=== PATIENT | female | born 1965 | race Hispanic/Latino ===

== ENCOUNTER → 2019-01-28 | Outpatient (CLI) | payer OTHER ==
[2019-01-28 12:08] LABS: CREATININE 0.7 mg/dL (0.5-1.5)
== END | disposition home or self-care (01) ==
LOC: LAB 11:05
PROVIDERS: ATTEND Internal Medicine Cardiovascular Disease
DX: R07.9 Chest pain, unspecified (principal); R06.00 Dyspnea, unspecified
CPT/HCPCS: 36415; 82565; 84520

== ENCOUNTER → 2019-01-30 | Outpatient (CLI) | payer OTHER ==
[~2019-01-30] MED LIST: IOHEXOL-350 50ML VIAL IV ONE
== END | disposition home or self-care (01) ==
LOC: RAH 08:37
PROVIDERS: ATTEND Internal Medicine Cardiovascular Disease
DX: I26.99 Other pulmonary embolism without acute cor pulmonale (principal); M79.661 Pain in right lower leg; M79.662 Pain in left lower leg; R07.9 Chest pain, unspecified
CPT/HCPCS: 71275; 93970; Q9967

== ENCOUNTER → 2019-07-30 | Outpatient (CLI) | payer OTHER | END | disposition home or self-care (01) | LOC: RAH 14:53 | PROVIDERS: ATTEND Internal Medicine | DX: Z12.31 Encounter for screening mammogram for malignant neoplasm of breast (principal) | CPT/HCPCS: 77067 ==

== ENCOUNTER 2020-07-02 06:13 | Day surgery (SDC) | payer OTHER ==
[2020-06-30 10:00] VITALS: BP 148/69
[2020-06-30 10:58] LABS: BASOPHILS % (AUTO) 0.5 % (0.0-5.0); EOSINOPHILS % (AUTO) 1.8 % (0.0-8.0); HEMATOCRIT 38.8 % (36-48); LYMPHOCYTES % (AUTO) 29.4 % (21.0-51.0); MEAN CORPUSCULAR HEMOGLOBIN 30.3 pg (27.0-33.0); MEAN CORPUSCULAR HGB CONC 32.5 g/dL (32.0-36.0); MEAN CORPUSCULAR VOLUME 93.3 fL (79-99); MONOCYTES % (AUTO) 4.5 % (3.0-13.0); NEUTROPHILS % (AUTO) 63.5 % (40.0-77.0); PLATELET COUNT (AUTO) 406 K/uL (130-400); RED BLOOD CELL COUNT(AUTO) 4.16 MIL/uL (4.00-5.50); RED CELL DISTRIBUTION WIDTH 12.1 % (11.0-15.5); WHITE BLOOD COUNT (AUTO) 7.7 K/uL (4.8-10.8)
[2020-06-30 11:07] LABS: APPEARANCE,URINE Cloudy (CLEAR); BILIRUBIN,URINE Negative (NEGATIVE); COLOR,URINE Yellow (YELLOW); GLUCOSE, URINE (UA) Negative (NEGATIVE); KETONES,URINE Trace mg/dL (NEGATIVE); LEUKOCYTE ESTERASE ,URINE Small (NEGATIVE); NITRATE,URINE Negative (NEGATIVE); OCCULT BLOOD,URINE Negative (NEGATIVE); PH,URINE 5.5 (5.0-8.0); PROTEIN,URINE Negative (NEGATIVE); UROBILINOGEN,URINE 0.2 mg/dL (0.2-1.0)
[2020-06-30 11:13] LABS: CREATININE 0.8 mg/dL (0.5-1.5); POTASSIUM 4.1 mmol/L (3.5-5.1)
[2020-06-30 12:00] LABS: PROTHROMBIN TIME 10.9 SEC (9.6-11.6)
[2020-06-30 12:01] LABS: PARTIAL THROMBOPLASTIN TIME 29.1 SEC (26.3-35.5)
[2020-06-30 12:01] LABS: BACTERIA,URINE Few /HPF (None Seen); RBC,URINE 0-1 /HPF (0-1)
[2020-06-30 12:02] LABS: MUCUS,URINE Few LPF (None Seen)
[2020-07-02] VITALS (10 sets, daily range): BP systolic 111–133; BP diastolic 60–81
[~2020-07-02] VITALS: Ht 156.5 cm; Wt 68.0 kg
[~2020-07-02 06:13] MED LIST changes: +ACET-2521 PO; +AEC81 PO; +ASCO500C18 PO; +BACL10TA PO; +BIOT5000 PO; +CALC-190 PO; +CHOL500051 PO; +DIPH25TA51 PO; +DULO60CA64 PO; +FAMO20TA8 PO; +GABA-529 PO; -IOHEXOL-350 50ML VIAL IV ONE; +MULT-1367 PO; +NITR0.4T50 SL; +PANT20TA18 PO; +PIND10TA2 PO; +SIMV-46 PO
[2020-07-02] MEDS ORDERED: SODIUM CHLORIDE 0.9% 1000ML 1,000 ML IV ONE (06:26)
[2020-07-02] MEDS ORDERED: NICARDIPINE HCL 25 MG/10 ML ML IV ONE (07:18)
[2020-07-02] MEDS ORDERED: HEPARIN SODIUM 1000UNIT/ML 10ML VIAL ONE (07:19)
[2020-07-02] MEDS ORDERED: NITROGLYCERIN 2 MG/VIAL VIAL IV ONE (07:19)
[2020-07-02] MEDS ORDERED: IOHEXOL-350 75 ML VIAL IV ONE (07:24)
[2020-07-02] MEDS ORDERED: IOHEXOL-350 50ML VIAL IV ONE (07:24)
[2020-07-02] MEDS ORDERED: IOHEXOL 350 MG/ML 100ML INFUS..BTL IV ONE (07:24)
[2020-07-02] MEDS ORDERED: LIDOCAINE HCL 2% 20ML ONE (07:27)
[2020-07-02] MEDS ORDERED: SODIUM BICARB 50MEQ 50ML VIAL 50 ML ONE (07:28)
[2020-07-02] MEDS ORDERED: MIDAZOLAM HCL 1 MG/ML 2ML VIAL ONE (07:57)
[2020-07-02] MEDS ORDERED: FENTANYL CITRATE PF 50 MCG/1 ML 2ML VIAL ONE (07:57)
[2020-07-02] MEDS ORDERED: LABETALOL HCL 5 MG/ML 20ML VIAL IV ONE (08:17)
[2020-07-02] MEDS ORDERED: FUROSEMIDE 10 MG/ML 2ML VIAL ONE (08:21)
[2020-07-02] MEDS ORDERED: SODIUM CHLORIDE 0.9% 1000ML 1,000 ML IV SCH (08:45)
== END 2020-07-02 13:50 | disposition home or self-care (01) ==
LOC: DAH 06:13
PROVIDERS: ATTEND Internal Medicine Cardiovascular Disease
DX: I20.9 Angina pectoris, unspecified (principal); I95.1 Orthostatic hypotension; I11.0 Hypertensive heart disease with heart failure; I50.32 Chronic diastolic (congestive) heart failure; E78.00 Pure hypercholesterolemia, unspecified; K21.9 Gastro-esophageal reflux disease without esophagitis; Z79.01 Long term (current) use of anticoagulants; Z79.82 Long term (current) use of aspirin; Z98.890 Other specified postprocedural states; Z90.710 Acquired absence of both cervix and uterus; Z90.49 Acquired absence of other specified parts of digestive tract; Z82.49 Family history of ischemic heart disease and other diseases of the circulatory system; Z79.899 Other long term (current) drug therapy
CPT/HCPCS: 36415; 71045; 80048; 81001; 85025; 85610; 85730; 93005; 93458; A4215; A4216; A4221; A4222; A4223 ×3; A4606; A4663; C1769; C1894; J1644 ×3; J1940; J2250; J3010; J3490 ×5; J7030; Q9965; Q9967 ×3; 99156; 99157

== ENCOUNTER → 2020-08-27 | Outpatient (CLI) | payer OTHER | END | disposition home or self-care (01) | LOC: RAH 14:35 | PROVIDERS: ATTEND Internal Medicine | DX: Z12.31 Encounter for screening mammogram for malignant neoplasm of breast (principal) | CPT/HCPCS: 77067 ==

== ENCOUNTER → 2021-10-04 | Outpatient (CLI) | payer OTHER | END | disposition home or self-care (01) | LOC: RAH 12:45 | PROVIDERS: ATTEND Internal Medicine | DX: M19.012 Primary osteoarthritis, left shoulder (principal); M75.121 Complete rotator cuff tear or rupture of right shoulder, not specified as traumatic; M75.122 Complete rotator cuff tear or rupture of left shoulder, not specified as traumatic; M85.60 Other cyst of bone, unspecified site; M25.712 Osteophyte, left shoulder | CPT/HCPCS: 73221 ==

== ENCOUNTER 2022-06-03 15:07 | Inpatient (IN) | payer OTHER ==
[~2022-06-03] VITALS: Ht 152.4 cm; Wt 64.5 kg
[2022-06-03 15:54] LABS: BASOPHILS % (AUTO) 0.2 % (0.0-5.0); HEMATOCRIT 45.3 % (36-48); MEAN CORPUSCULAR HEMOGLOBIN 30.2 pg (27.0-33.0); MEAN CORPUSCULAR HGB CONC 33.3 g/dL (32.0-36.0); MEAN CORPUSCULAR VOLUME 90.6 fL (79-99); MONOCYTES % (AUTO) 4.4 % (3.0-13.0); PLATELET COUNT (AUTO) 183 K/uL (130-400); RED CELL DISTRIBUTION WIDTH 13.1 % (11.0-15.5)
[2022-06-03 16:23] LABS: ALBUMIN 4.1 g/dL (3.5-5.0); CREATININE 1.3 mg/dL (0.5-1.5); POTASSIUM 3.3 mmol/L (3.5-5.1); TOTAL PROTEIN, SERUM 7.9 g/dL (6.0-8.3)
[2022-06-03 16:44] LABS: APPEARANCE,URINE CLEAR (CLEAR); BILIRUBIN,URINE NEGATIVE (NEGATIVE); COLOR,URINE YELLOW (YELLOW); GLUCOSE, URINE (UA) NEGATIVE (NEGATIVE); KETONES,URINE NEGATIVE (NEGATIVE); LEUKOCYTE ESTERASE ,URINE NEGATIVE Leu/uL (NEGATIVE); NITRATE,URINE NEGATIVE (NEGATIVE); OCCULT BLOOD,URINE SMALL (NEGATIVE); PH,URINE 5.5 (5.0-8.0); PROTEIN,URINE 50 mg/dL (NEGATIVE); UROBILINOGEN,URINE 0.2 mg/dL (0.2-1.0)
[2022-06-03 16:53] LABS: BACTERIA,URINE RARE /HPF (None Seen); MUCUS,URINE FEW LPF (None Seen); SQUAMOUS EPITHELIAL CELL,UR RARE /HPF (0-2)
[2022-06-03] MEDS ORDERED: 0.9%NACL 1000ML 1,000 ML IV ONE (18:00)
[2022-06-03] MEDS ORDERED: LACTULOSE 20 GM/30 ML UDCUP PO PRN (19:00)
[2022-06-03] MEDS ORDERED: DOCUSATE SODIUM 100 MG CAP PO PRN (19:00)
[2022-06-03] MEDS ORDERED: ONDANSETRON 4MG INJ IVP PRN (19:00)
[2022-06-03] MEDS ORDERED: HYDRALAZINE 20MG/ML VIAL IV PRN (19:00)
[2022-06-03] MEDS ORDERED: TEMAZEPAM 15 MG CAPSULE PO PRN (19:00)
[2022-06-03] MEDS ORDERED: POTASSIUM CHLORIDE 10MEQ SR TAB PO ONE (19:30)
[2022-06-03] MEDS: DOXYCYCLINE 100MG+NS 250ML IV SCH (20:26)
[2022-06-03] MEDS: LACTATED RINGERS 1000ML 1,000 ML IV SCH (20:26)
[2022-06-03] MEDS: FAMOTIDINE 20MG TAB PO SCH (20:29)
[2022-06-03 21:00] VITALS: BP_SYST 114; BP_SYST 125; BP_SYST 126; BP_DIAS 67; BP_DIAS 68
[2022-06-03 22:23] LABS: CRP QUANTITATIVE 2.2 mg/L (0.00-9.0)
[2022-06-04] VITALS (10 sets, daily range): BP systolic 90–122; BP diastolic 43–68
[2022-06-04] MEDS ORDERED: DOXY100T2 PO (01:43)
[2022-06-04] MEDS ORDERED: TRAZ-185 PO (01:47)
[2022-06-04] MEDS ORDERED: PREG50 PO (01:49)
[2022-06-04] MEDS ORDERED: ROSU20TA31 PO (01:50)
[2022-06-04] MEDS ORDERED: FEXO1TAB8 PO (01:51)
[2022-06-04] MEDS ORDERED: HYDR25TA PO (01:51)
[2022-06-04] MEDS ORDERED: PYRI100T10 PO (01:52)
[2022-06-04 05:28] LABS: HEMATOCRIT 36.2 % (36-48); LYMPHOCYTES % (AUTO) 26.2 % (21.0-51.0); MEAN CORPUSCULAR HEMOGLOBIN 29.9 pg (27.0-33.0); MEAN CORPUSCULAR VOLUME 88.1 fL (79-99); MONOCYTES % (AUTO) 6.7 % (3.0-13.0); NEUTROPHILS % (AUTO) 66.6 % (40.0-77.0); PLATELET COUNT (AUTO) 169 K/uL (130-400); RED BLOOD CELL COUNT(AUTO) 4.11 MIL/uL (4.00-5.50); RED CELL DISTRIBUTION WIDTH 13.1 % (11.0-15.5); WHITE BLOOD COUNT (AUTO) 2.1 K/uL (4.8-10.8)
[2022-06-04] MEDS: LACTATED RINGERS 1000ML 1,000 ML IV SCH (05:28)
[2022-06-04 05:57] LABS: CREATININE 0.8 mg/dL (0.5-1.5); MAGNESIUM 1.6 mg/dL (1.80-2.40); PHOSPHORUS 2.6 mg/dL (2.5-4.9); THYROID STIMULATING HORMONE 1.9 uIU/mL (0.36-3.74)
[2022-06-04 06:09] LABS: POTASSIUM 2.9 mmol/L (3.5-5.1)
[2022-06-04] MEDS: LACTATED RINGERS 1000ML IV SCH (06:30)
[2022-06-04] MEDS ORDERED: MAGNESIUM 2GM PREMIX 50ML 50 ML IV PRN (06:30)
[2022-06-04] MEDS ORDERED: LIDOCAINE HCL-MPF 1% 2ML VIAL IV PRN (06:30)
[2022-06-04] MEDS ORDERED: POTASSIUM CHLORIDE 10MEQ/100ML 100 ML IV PRN (06:30)
[2022-06-04] MEDS ORDERED: POTASSIUM CHLORIDE 10% ELIXIR 20 MEQ/15 ML UDCUP PO PRN (06:30)
[2022-06-04 06:36] LABS: BAND NEUTROPHILS % (MANUAL) 1 % (0-2); LYMPHOCYTES % (MANUAL) 19 % (22-44); MONOCYTES % (MANUAL) 1 % (2-9); REACTIVE LYMPHOCYTES 3 % (0-0); SEGMENTED NEUTROPHILS % 76 % (40-70)
[2022-06-04 06:37] LABS: MAN.DIFF COMMENT-IMPRESSION MANUAL DIFFERENTIAL
[2022-06-04 06:38] LABS: PLATELET MORPHOLOGY COMMENT ADEQUATE
[2022-06-04] MEDS: ZOSYN 3.375GM +NS 50ML IV SCH ×3 (06:55→20:04)
[2022-06-04] MEDS: KCL 20 MEQ ERTAB PO PRN ×4 (07:21→17:45)
[2022-06-04] MEDS: NS-20 MEQ KCL 1000ML 1,000 ML IV SCH (07:21)
[2022-06-04] MEDS ORDERED: 0.9% NACL 250ML 250 ML ONE (07:41)
[2022-06-04] MEDS: POLYETHYLENE GLYCOL 3350 17 GM POWD.PACK PO SCH (07:42)
[2022-06-04] MEDS: DOXYCYCLINE 100MG+NS 250ML IV SCH ×2 (07:42→20:04)
[2022-06-04] MEDS: ACETAMINOPHEN 325 MG TAB PO PRN ×3 (07:43→20:08)
[2022-06-04] MEDS ORDERED: TRAZODONE HCL 50 MG TAB PO PRN (11:30)
[2022-06-04] MEDS: ATORVASTATIN 40 MG TABLET PO SCH (17:44)
[2022-06-04] MEDS ORDERED: VITAMIN B COMPLEX 1 CAPSULE PO SCH (19:00)
[2022-06-04] MEDS ORDERED: MULTIVITAMIN TABLET PO SCH (19:00)
[2022-06-04 19:34] LABS: AMPHET/METH SCREEN,URINE NEGATIVE (NEGATIVE); BARBITURATE SCREEN, URINE NEGATIVE (NEGATIVE); BENZODIAZEPINES SCREEN,URINE NEGATIVE (NEGATIVE); CANNABINOID SCREEN,URINE NEGATIVE (NEGATIVE); COCAINE SCREEN,URINE NEGATIVE (NEGATIVE); OPIATE SCREEN,URINE NEGATIVE (NEGATIVE); PHENCYCLIDINE SCREEN,URINE NEGATIVE (NEGATIVE)
[2022-06-04] MEDS: FAMOTIDINE 20MG TAB PO SCH (20:05)
[2022-06-04] MEDS: PREGABALIN 25 MG CAP PO SCH (20:06)
[2022-06-05] VITALS (8 sets, daily range): BP systolic 91–127; BP diastolic 38–71
[2022-06-05] MEDS: NS-20 MEQ KCL 1000ML 1,000 ML IV SCH ×2 (02:30→22:30)
[2022-06-05] MEDS: LACTATED RINGERS 1000ML IV SCH (04:40)
[2022-06-05 04:47] LABS: HEMATOCRIT 37.3 % (36-48); LYMPHOCYTES % (AUTO) 35.7 % (21.0-51.0); MEAN CORPUSCULAR HEMOGLOBIN 29.9 pg (27.0-33.0); MEAN CORPUSCULAR VOLUME 90.5 fL (79-99); MONOCYTES % (AUTO) 5.4 % (3.0-13.0); NEUTROPHILS % (AUTO) 58.3 % (40.0-77.0); PLATELET COUNT (AUTO) 148 K/uL (130-400); RED BLOOD CELL COUNT(AUTO) 4.12 MIL/uL (4.00-5.50); RED CELL DISTRIBUTION WIDTH 13.5 % (11.0-15.5); WHITE BLOOD COUNT (AUTO) 1.7 K/uL (4.8-10.8)
[2022-06-05] MEDS: ZOSYN 3.375GM +NS 50ML IV SCH ×3 (05:03→22:30)
[2022-06-05 05:13] LABS: ALBUMIN 2.9 g/dL (3.5-5.0); CREATININE 0.8 mg/dL (0.5-1.5); POTASSIUM 4.1 mmol/L (3.5-5.1); THYROID STIMULATING HORMONE 1.03 uIU/mL (0.36-3.74)
[2022-06-05] MEDS: DOXYCYCLINE 100MG+NS 250ML IV SCH ×2 (08:59→22:30)
[2022-06-05] MEDS: POLYETHYLENE GLYCOL 3350 17 GM POWD.PACK PO SCH (08:59)
[2022-06-05] MEDS: PREGABALIN 25 MG CAP PO SCH ×2 (09:00→22:30)
[2022-06-05] MEDS: MULTIVITAMIN TABLET PO SCH (09:00)
[2022-06-05] MEDS: VITAMIN B COMPLEX 1 CAPSULE PO SCH (09:00)
[2022-06-05] MEDS ORDERED: 0.9% NACL 250ML 250 ML ONE (10:25)
[2022-06-05] MEDS: PYRIDOXINE HCL 50 MG TABLET PO SCH (10:28)
[2022-06-05] MEDS: ATORVASTATIN 40 MG TABLET PO SCH (16:26)
[2022-06-05 20:47] LABS: HEPATITIS A IGM ANTIBODY Non-Reactive (Nonreactive); HEPATITIS B CORE IGM ANTIBODY Non-Reactive (Negative); HEPATITIS B SURFACE ANTIGEN Non-Reactive (Nonreactive); HEPATITIS C ANTIBODY Non-Reactive (Nonreactive)
[2022-06-05] MEDS: FAMOTIDINE 20MG TAB PO SCH (22:30)
[2022-06-05] MEDS: ACETAMINOPHEN 325 MG TAB PO PRN (22:31)
[2022-06-05] MEDS ORDERED: FLUCONAZOLE 400 MG/NS 200 ML 200 ML IV SCH (23:00)
[2022-06-06] MEDS: FLUCONAZOLE 400 MG/NS 200 ML 200 ML IV SCH (03:14)
[2022-06-06] MEDS: ZOSYN 3.375GM +NS 50ML IV SCH ×3 (04:21→17:21)
[2022-06-06 04:43] VITALS: BP 93/45
[2022-06-06 05:37] LABS: HEMATOCRIT 33.6 % (36-48); MEAN CORPUSCULAR HEMOGLOBIN 30.3 pg (27.0-33.0); MEAN CORPUSCULAR HGB CONC 33.6 g/dL (32.0-36.0); MEAN CORPUSCULAR VOLUME 90.1 fL (79-99); PLATELET COUNT (AUTO) 131 K/uL (130-400); RED BLOOD CELL COUNT(AUTO) 3.73 MIL/uL (4.00-5.50); RED CELL DISTRIBUTION WIDTH 13.7 % (11.0-15.5); WHITE BLOOD COUNT (AUTO) 2.1 K/uL (4.8-10.8)
[2022-06-06 05:48] LABS: CREATININE 0.8 mg/dL (0.5-1.5); POTASSIUM 3.9 mmol/L (3.5-5.1)
[2022-06-06 07:44] LABS: BASOPHILS % (MANUAL) 2 % (0-2); LYMPHOCYTES % (MANUAL) 38 % (22-44); MONOCYTES % (MANUAL) 20 % (2-9); SEGMENTED NEUTROPHILS % 40 % (40-70)
[2022-06-06 07:45] LABS: MAN.DIFF COMMENT-IMPRESSION MANUAL DIFFERENTIAL
[2022-06-06 07:47] LABS: PLATELET MORPHOLOGY COMMENT ADEQUATE
[2022-06-06 08:00] VITALS: BP 119/70
[2022-06-06] MEDS ORDERED: 0.9% NACL 250ML 250 ML ONE (08:52)
[2022-06-06] MEDS: MULTIVITAMIN TABLET PO SCH (08:55)
[2022-06-06] MEDS: POLYETHYLENE GLYCOL 3350 17 GM POWD.PACK PO SCH (08:55)
[2022-06-06] MEDS: VITAMIN B COMPLEX 1 CAPSULE PO SCH (08:55)
[2022-06-06] MEDS: DOXYCYCLINE 100MG+NS 250ML IV SCH ×2 (08:55→20:07)
[2022-06-06] MEDS: PREGABALIN 25 MG CAP PO SCH ×2 (08:55→20:04)
[2022-06-06] MEDS ORDERED: FLUCONAZOLE 400 MG/NS 200 ML 200 ML IV SCH (09:00)
[2022-06-06] MEDS: PYRIDOXINE HCL 50 MG TABLET PO SCH (11:35)
[2022-06-06 11:55] VITALS: BP 102/57
[2022-06-06 16:00] VITALS: BP 106/54
[2022-06-06] MEDS: ATORVASTATIN 40 MG TABLET PO SCH (17:18)
[2022-06-06] MEDS: FAMOTIDINE 20MG TAB PO SCH (20:04)
[2022-06-06 20:28] VITALS: BP 118/65
[2022-06-07 00:12] VITALS: BP 99/52
[2022-06-07 03:29] VITALS: BP 102/70
[2022-06-07] MEDS: ZOSYN 3.375GM +NS 50ML IV SCH ×2 (03:58→12:50)
[2022-06-07] MEDS: FLUCONAZOLE 400 MG/NS 200 ML 200 ML IV SCH (03:58)
[2022-06-07 05:04] LABS: BASOPHILS % (AUTO) 0.4 % (0.0-5.0); HEMATOCRIT 34.3 % (36-48); LYMPHOCYTES % (AUTO) 56.5 % (21.0-51.0); MEAN CORPUSCULAR HEMOGLOBIN 29.7 pg (27.0-33.0); MEAN CORPUSCULAR HGB CONC 33.2 g/dL (32.0-36.0); MEAN CORPUSCULAR VOLUME 89.3 fL (79-99); MONOCYTES % (AUTO) 7.6 % (3.0-13.0); NEUTROPHILS % (AUTO) 35.1 % (40.0-77.0); PLATELET COUNT (AUTO) 157 K/uL (130-400); RED BLOOD CELL COUNT(AUTO) 3.84 MIL/uL (4.00-5.50); RED CELL DISTRIBUTION WIDTH 13.8 % (11.0-15.5); WHITE BLOOD COUNT (AUTO) 2.8 K/uL (4.8-10.8)
[2022-06-07 08:00] VITALS: BP 118/75
[2022-06-07] MEDS ORDERED: 0.9% NACL 250ML 250 ML ONE (08:27)
[2022-06-07] MEDS: DOXYCYCLINE 100MG+NS 250ML IV SCH (08:41)
[2022-06-07] MEDS: PYRIDOXINE HCL 50 MG TABLET PO SCH (08:41)
[2022-06-07] MEDS: POLYETHYLENE GLYCOL 3350 17 GM POWD.PACK PO SCH (08:41)
[2022-06-07] MEDS: VITAMIN B COMPLEX 1 CAPSULE PO SCH (08:42)
[2022-06-07] MEDS: MULTIVITAMIN TABLET PO SCH (08:42)
[2022-06-07] MEDS: PREGABALIN 25 MG CAP PO SCH (08:42)
[2022-06-07 11:48] VITALS: BP_SYST 117; BP_SYST 140; BP_DIAS 74; BP_DIAS 85
== END 2022-06-07 17:00 | disposition home or self-care (01) | DRG 682 ==
LOC: EDH 15:07 → OBSVTOIN 18:53 → EDHIP 18:53 → 3AH 20:48
PROVIDERS: ADMIT Internal Medicine Critical Care Medicine; ATTEND Internal Medicine Critical Care Medicine
DX: N17.9 Acute kidney failure, unspecified (principal); R65.11 Systemic inflammatory response syndrome (SIRS) of non-infectious origin with acute organ dysfunction; B20 Human immunodeficiency virus [HIV] disease; E86.0 Dehydration; R55 Syncope and collapse; Z20.822 Contact with and (suspected) exposure to COVID-19; H66.90 Otitis media, unspecified, unspecified ear; M54.50 Low back pain, unspecified; G89.29 Other chronic pain; E87.6 Hypokalemia; M79.7 Fibromyalgia; E78.5 Hyperlipidemia, unspecified; F39 Unspecified mood [affective] disorder; K21.9 Gastro-esophageal reflux disease without esophagitis; I10 Essential (primary) hypertension; Z90.710 Acquired absence of both cervix and uterus; R50.81 Fever presenting with conditions classified elsewhere; D72.0 Genetic anomalies of leukocytes
CPT/HCPCS: 36415; 70450; 71045; 80048; 80053; 80061; 80074; 80305; 81001; 82330; 82550; 83036; 83605; 83735; 83874; 84100; 84145; 84443; 84484; 85025; 85027; 85651; 86140; 86360; 86480; 86701; 87040; 87389; 87390; 87536; 87635; 87804; 93005; 93306; 93356; 93880; C9803; G0378; J1450; J2405; J2543; J3475; J3480; J3490; J7030; J7050; J7120

== ENCOUNTER → 2024-06-06 | Outpatient (CLI) | payer OTHER ==
[~2024-06-06] MED LIST changes: -ACET-2521 PO; -AEC81 PO; -ASCO500C18 PO; -BACL10TA PO; -BIOT5000 PO; -CALC-190 PO; -CHOL500051 PO; -DIPH25TA51 PO; +DOXY100T2 PO; -DULO60CA64 PO; -FAMO20TA8 PO; +FEXO1TAB8 PO; -GABA-529 PO; +HYDR25TA PO; -MULT-1367 PO; -NITR0.4T50 SL; -PANT20TA18 PO; -PIND10TA2 PO; +PREG50 PO; +PYRI100T10 PO; +ROSU20TA98 PO; -SIMV-46 PO; +TRAZ-185 PO
--- NOTE | 2024-06-09 09:53 | HMCIMG ---
MAMMO SCREENING BILATERAL HISTORY: Screening mammogram. COMPARISON: 08/29/2021 TECHNIQUE: Bilateral screening mammogram with CAD was performed with craniocaudal and mediolateral oblique projections. FINDINGS: There are scattered areas of fibroglandular density. Nodular densities are again seen in the left breast unchanged. There is no evidence of a dominant mass, or suspicious microcalcification. There is no evidence of nipple retraction or skin thickening. IMPRESSION: 1. Stable mammogram. Patient was entered into a reminder system with a target due date for their next mammogram. BI-RADS: CATEGORY 2: BENIGN FINDINGS Recommend monthly self breast exam as well as annual clinical examination. A negative x-ray should not delay biopsy if a dominant or clinically suspicious mass is present, since 8-10% of cancers are not identified by mammography. Dense breasts particularly, may obscure an underlying neoplasm. Some of these may be detected clinically and therefore, clinical examination is an essential part of breast evaluation.
== END | disposition home or self-care (01) ==
LOC: RAH 14:02
PROVIDERS: ATTEND Internal Medicine
DX: Z12.31 Encounter for screening mammogram for malignant neoplasm of breast (principal); R92.323 Mammographic fibroglandular density, bilateral breasts
CPT/HCPCS: 77067

== ENCOUNTER → 2024-06-26 | Outpatient (CLI) | payer OTHER ==
--- NOTE | 2024-06-26 15:27 | HMCIMG ---
Exam Type: MRI OF THE CERVICAL SPINE WITHOUT GADOLINIUM Clinical Information: M54.12 Radiculopathy, cervical region Comparison: None Technique: Sagittal T1 and T2 FSE, Sagittal STIR and Sagittal proton density images were completed through the cervical spine. Axial T1, T2 and proton density images were also acquired. FINDINGS: Examination shows straightening consistent with spasm. No cord compression is seen. There are diffuse spondylitic changes. By level: C1-2: No protrusions or extrusions or nerve root impingement or cord compression or canal stenosis. C2-3: No protrusions or extrusions or nerve root impingement or cord compression or canal stenosis. C3-4, C4-5, C5-6 and C6-7 as well as C7-T1: Broad-based central zone disc protrusion causing bilateral mild neural foraminal narrowing and nerve root impingement without cord compression. Mild spinal canal stenosis. IMPRESSION: Degenerative changes. Spasm. Multilevel protrusions as noted.
== END | disposition home or self-care (01) ==
LOC: RAH 14:25
PROVIDERS: ATTEND Internal Medicine
DX: M47.22 Other spondylosis with radiculopathy, cervical region (principal); M51.16 Intervertebral disc disorders with radiculopathy, lumbar region; M48.02 Spinal stenosis, cervical region; R07.9 Chest pain, unspecified; R06.00 Dyspnea, unspecified
CPT/HCPCS: 72141